=== PATIENT | female | born 1945 | race Caucasian/White ===

== ENCOUNTER 2024-01-11 15:32 | Emergency (ER) | payer OTHER, MEDICARE ==
[2024-01-11 15:49] VITALS: BP 147/76; PULSE 85; RESP 20; TEMP 100.3; BMI 50.3
[2024-01-11] MEDS: ACETAMINOPHEN 325 MG TABLET (FP) PO ONE (16:44)
[2024-01-11] MEDS ORDERED: ACETAMINOPHEN 325 MG TABLET (FP) ONE (16:45)
[2024-01-11] MEDS ORDERED: DEXAMETHASONE SOD PHOSPHATE 10 MG/1 ML VIAL ONE (19:14)
[2024-01-11] MEDS ORDERED: ALBUTEROL SO4 0.083% IH SOL 2.5 MG/3 ML VIAL.NEB. NEB ONE (19:15)
[2024-01-11] MEDS: DEXAMETHASONE SOD PHOSPHATE 10 MG/1 ML VIAL IM ONE (19:16)
[2024-01-11] MEDS: ALBUTEROL SO4 0.083% IH SOL 2.5 MG/3 ML VIAL.NEB. NEB ONE (19:16)
== END 2024-01-11 20:39 | disposition home or self-care (01) ==
LOC: FER 15:32
PROC: 3E023GC Introduction of Other Therapeutic Substance into Muscle, Percutaneous Approach (ICD-10-PCS; principal; 2024-01-11)
PROC: 3E0F7GC Introduction of Other Therapeutic Substance into Respiratory Tract, Via Natural or Artificial Opening (ICD-10-PCS; 2024-01-11)
DX: R05.9 Cough, unspecified (principal); J02.9 Acute pharyngitis, unspecified; R50.9 Fever, unspecified; J34.89 Other specified disorders of nose and nasal sinuses; J40 Bronchitis, not specified as acute or chronic; Z20.822 Contact with and (suspected) exposure to COVID-19
CPT/HCPCS: 0241U-QW; 71046-TC-FY; 99284-25; J1100

== ENCOUNTER 2024-12-13 16:08 | Emergency (ER) | payer OTHER, MEDICARE ==
[2024-12-13 16:13] VITALS: BP 143/64; PULSE 82; RESP 18; TEMP 99.3; BMI 48.1
[2024-12-13] MEDS ORDERED: ACETAMINOPHEN 500 MG TABLET (FP) ONE (16:29)
[2024-12-13] MEDS: ACETAMINOPHEN 500 MG TABLET (FP) PO ONE (16:37)
== END 2024-12-13 18:48 | disposition home or self-care (01) ==
LOC: FER 16:08
DX: J10.1 Influenza due to other identified influenza virus with other respiratory manifestations (principal); J98.11 Atelectasis; R05.1 Acute cough; R07.81 Pleurodynia; Z20.822 Contact with and (suspected) exposure to COVID-19
CPT/HCPCS: 0241U-QW; 71046-TC-FY; 99284-25